=== PATIENT | female | born 1945 | race Caucasian/White ===

== ENCOUNTER 2021-03-24 22:12 | Emergency (ER) | payer MEDICARE, BC ==
[~2021-03-24] VITALS: Ht 170.2 cm; Wt 65.9 kg
[~2021-03-24 22:12] MED LIST: APIX2.5T PO; ATOR20TA66 PO; CARV12.549 PO; FURO80TA3 PO; LEVO25TA7 PO; LOSA25TA41 PO; NIFE60TA79 PO; PRED10TA23 PO
[2021-03-24] MEDS ORDERED: oxymetazoline 15 ML nasal spray NS ONE (23:30)
[2021-03-25 00:23] VITALS: BP 116/74
== END 2021-03-25 00:26 | disposition home or self-care (01) ==
LOC: ER 22:13
DX: R04.0 Epistaxis (principal); I25.10 Atherosclerotic heart disease of native coronary artery without angina pectoris; I13.2 Hypertensive heart and chronic kidney disease with heart failure and with stage 5 chronic kidney disease, or end stage renal disease; E11.22 Type 2 diabetes mellitus with diabetic chronic kidney disease; N18.6 End stage renal disease; Z99.2 Dependence on renal dialysis; Z90.710 Acquired absence of both cervix and uterus; Z98.890 Other specified postprocedural states; Z88.5 Allergy status to narcotic agent; Z88.8 Allergy status to other drugs, medicaments and biological substances; Z79.899 Other long term (current) drug therapy
CPT/HCPCS: 99283